=== PATIENT | female | born 1950 | race Two or more races ===

== ENCOUNTER 2023-12-08 07:20 | Inpatient (IN) | payer MEDICARE, OTHER ==
[2023-12-07 12:02] LABS: Basophils # (auto) 0.1 10 ^3/uL (0-0.2); Basophils % (auto) 0.9 % (0.0-2.0); Eosinophils # (auto) 0.1 10 ^3/uL (0-0.8); Eosinophils % (auto) 1.3 % (0.0-7.0); Hematocrit 40.3 % (36.0-46.0); Hemoglobin 13.4 g/dL (12.2-16.2); Lymphocytes # (auto) 2.7 10 ^3/uL (0.4-5.4); Lymphocytes % (auto) 40.8 % (10.0-50.0); Mean Corpuscular Hemoglobin 29.8 pg (28.0-32.0); Mean Corpuscular Hgb Conc. 33.3 g/dL (32.0-36.0); Mean Corpuscular Volume 89.4 fL (80.0-100.0); Monocytes # (auto) 0.5 10 ^3/uL (0-1.3); Monocytes % (auto) 7.6 % (0.0-12.0); Neutrophils # (auto) 3.2 10 ^3/uL (1.6-8.6); Neutrophils % (auto) 49.4 % (37.0-80.0); Red Blood Cells 4.51 10^6/uL (4.0-5.20); Red Cell Distribution Width 13.6 % (11.8-14.3); White Blood Cell 6.5 10^3/uL (4.4-10.8)
[2023-12-07 12:17] LABS: INR 1.07 (0.9-1.15); Partial Thromboplastin Time 26.3 SEC (24.5-34.5); Prothrombin Time 11.2 sec (9.3-11.8)
[2023-12-07 12:26] LABS: Urine Bacteria None Seen /hpf (None Seen)
[2023-12-07 12:38] LABS: Alanine Aminotransferase 20 U/L (7-40); Alkaline Phosphatase 45 U/L (46-116); Anion Gap 9 (5-15); BUN/Creatinine Ratio 11.8 (10.0-20.0); Blood Urea Nitrogen 9 mg/dL (9-23); Calcium 9.5 mg/dL (8.5-10.1); Carbon Dioxide 26 mmol/L (20-30); Chloride 106 mmol/L (98-107); Glucose 145 mg/dL (74-106); Potassium 4.3 mmol/L (3.5-5.1); Sodium 141 mmol/L (136-145)
[2023-12-07 12:39] LABS: Albumin 4.2 g/dL (3.2-4.8)
[2023-12-07 12:40] LABS: Aspartate Aminotransferase 22 U/L (13-40); Bilirubin, Total 0.6 mg/dL (0.2-1.0); Total Protein 6.5 g/dL (5.7-8.2)
[2023-12-07 13:15] LABS: Urine Blood Negative /uL (Negative); Urine Clarity Clear (Clear); Urine Color Yellow (Yellow); Urine Mucus FEW (None Seen); Urine Protein, UAD Negative (Negative); Urine Specific Gravity 1.015 (1.001-1.035); Urine Urobilinogen Normal (Negative); Urine WBC 1 /hpf (0 - 5)
[~2023-12-08] VITALS: Ht 157.5 cm; Wt 81.2 kg
[~2023-12-08 07:20] MED LIST: ATOR20TA PO; MET50T PO; METF-370 PO; SITA50TA PO
[2023-12-08] MEDS ORDERED: HYDROmorphone HCL 2 MG/ML VL/or syr IV PRN ×2 (08:00)
[2023-12-08] MEDS ORDERED: MORPHINE SULFATE INJ 2 MG/ml SYRG IV PRN ×2 (08:00→13:30)
[2023-12-08] MEDS ORDERED: MIDAZOLAM HCL 2MG/2ML 2ml VIAL (1mg/ml) ONE (08:46)
[2023-12-08] MEDS ORDERED: LIDOCAINE HCL 2% TOP JELLY 5ML TOP ONE (08:46)
[2023-12-08] MEDS ORDERED: NEOSTIGMINE 1 MG/ML INJ (10mg/10ML VIAL) ONE (08:46)
[2023-12-08] MEDS ORDERED: MEPERIDINE HCL (50 MG/ML) 1 ML VIAL ONE (08:46)
[2023-12-08] MEDS ORDERED: fentaNYL CITRATE 100 MCG/2 ML VL ONE (08:46)
[2023-12-08] MEDS ORDERED: SODIUM CHLORIDE LOCK 50 ML ONE (08:46)
[2023-12-08] MEDS ORDERED: GLYCOPYRROLATE 0.2 MG/ML 1ML VIAL ONE (08:46)
[2023-12-08] MEDS ORDERED: ROCURONIUM 10MG/ML 10ML VIAL IV ONE (08:46)
[2023-12-08] MEDS ORDERED: DexAMETHasone SOD PHOS 10MG/1ML VIAL INJ ONE (08:46)
[2023-12-08] MEDS ORDERED: LIDOCAINE 1% INJ PF 5ML AMP ONE (08:46)
[2023-12-08] MEDS ORDERED: PROPOFOL 10 MG/ML 20 ML IV ONE (08:46)
[2023-12-08] MEDS ORDERED: KETAMINE 50mg/ML 1ml syringe ONE (08:54)
[2023-12-08] MEDS ORDERED: NITROGLYCERIN 0.4 MG SL TAB SL PRN (13:30)
[2023-12-08] MEDS ORDERED: ACETAMINOPHEN 325 MG TAB PO PRN (13:30)
[2023-12-08] MEDS: LIDOCAINE W/ EPINEPHRINE 1% 20ML VIAL ONE (13:52)
[2023-12-08 14:02] VITALS: O2SAT 97
[2023-12-08] MEDS: ONDANSETRON HCL 4 MG/2 ML VIAL ONE (14:14)
[2023-12-08] MEDS: METOCLOPRAMIDE HCL 5MG/ml INJ 2ml VIAL IV ONE (14:27)
[2023-12-08] MEDS: FAMOTIDINE (10MG/ML) 2ML VL IV ONE (14:53)
[2023-12-08] MEDS: ceFAZolin 1GM/50ML 50 ML IV SCH (16:00)
[2023-12-08] MEDS ORDERED: hydrALAZINE HCL 20 MG/ML VL IV PRN (17:00)
[2023-12-08] MEDS ORDERED: DEXTROSE (50%) 50ML SYRG IV PRN (17:00)
[2023-12-08] MEDS: InsuLIN REG 1unit/0.01ml Soln (100units/ml) SC SCH (17:00)
[2023-12-08 17:30] VITALS: BP 117/69; PULSE 69; PULSE 79; RESP 18; TEMP 96.9; O2SAT 91
[2023-12-08 18:05] VITALS: BP 109/45; PULSE 68; RESP 18; O2SAT 98
[2023-12-08] MEDS: ACCU-CHEK COMFORT CURVE STRIP VI SCH (19:25)
[2023-12-08 20:00] VITALS: BP 116/62; PULSE 79; PULSE 90; RESP 18; TEMP 98.3; O2SAT 97
[2023-12-08] MEDS: DOCUSATE SOD 100 MG CAP PO SCH (21:48)
[2023-12-08] MEDS: METHOCARBAMOL 500 MG TAB PO SCH (21:48)
[2023-12-08] MEDS: D5W/SOD CHLO 0.9% 1,000 ML IV SCH (21:49)
[2023-12-08 22:00] VITALS: BP 116/62; PULSE 79; RESP 18; O2SAT 97
[2023-12-09] VITALS (8 sets, daily range): BP systolic 93–123; BP diastolic 38–52; PULSE 75–91; RESP 16–20; TEMP 97.5–98.9; O2SAT 95–99
[2023-12-09] MEDS: ONDANSETRON HCL 4 MG/2 ML VIAL IV PRN (06:19)
[2023-12-09] MEDS: MORPHINE SULFATE INJ 2 MG/ml SYRG IV PRN (06:20)
[2023-12-09 07:27] LABS: Basophils # (auto) 0 10 ^3/uL (0-0.2); Eosinophils # (auto) 0 10 ^3/uL (0-0.8); Hematocrit 31.8 % (36.0-46.0); Hemoglobin 10.6 g/dL (12.2-16.2); Lymphocytes # (auto) 0.6 10 ^3/uL (0.4-5.4); Lymphocytes % (auto) 5.3 % (10.0-50.0); Mean Corpuscular Hemoglobin 29.9 pg (28.0-32.0); Mean Corpuscular Hgb Conc. 33.4 g/dL (32.0-36.0); Mean Corpuscular Volume 89.8 fL (80.0-100.0); Monocytes # (auto) 0.5 10 ^3/uL (0-1.3); Monocytes % (auto) 4.5 % (0.0-12.0); Neutrophils # (auto) 10.8 10 ^3/uL (1.6-8.6); Neutrophils % (auto) 90.2 % (37.0-80.0); Red Blood Cells 3.54 10^6/uL (4.0-5.20); Red Cell Distribution Width 13.4 % (11.8-14.3)
[2023-12-09 07:46] LABS: Alanine Aminotransferase 16 U/L (7-40); Alkaline Phosphatase 35 U/L (46-116); Anion Gap 9 (5-15); BUN/Creatinine Ratio 13.3 (10.0-20.0); Blood Urea Nitrogen 10 mg/dL (9-23); Calcium 8.4 mg/dL (8.5-10.1); Carbon Dioxide 23 mmol/L (20-30); Chloride 104 mmol/L (98-107); Glucose 275 mg/dL (74-106)
[2023-12-09 07:47] LABS: Albumin 3.4 g/dL (3.2-4.8); Aspartate Aminotransferase 21 U/L (13-40); Bilirubin, Total 0.4 mg/dL (0.2-1.0); Total Protein 5.3 g/dL (5.7-8.2)
[2023-12-09 07:54] LABS: Sodium 136 mmol/L (136-145)
[2023-12-09] MEDS: HYDROcodone-ACET 10/325MG TAB PO PRN (11:23)
[2023-12-10] VITALS (8 sets, daily range): BP systolic 115–146; BP diastolic 39–88; PULSE 18–130; RESP 18–20; TEMP 97.9–101; O2SAT 90–95
[2023-12-10 05:46] LABS: Basophils # (auto) 0 10 ^3/uL (0-0.2); Basophils % (auto) 0.3 % (0.0-2.0); Eosinophils # (auto) 0 10 ^3/uL (0-0.8); Eosinophils % (auto) 0.2 % (0.0-7.0); Hemoglobin 10.3 g/dL (12.2-16.2); Lymphocytes # (auto) 1.2 10 ^3/uL (0.4-5.4); Lymphocytes % (auto) 9.2 % (10.0-50.0); Mean Corpuscular Hemoglobin 29.8 pg (28.0-32.0); Mean Corpuscular Hgb Conc. 33.1 g/dL (32.0-36.0); Monocytes # (auto) 0.7 10 ^3/uL (0-1.3); Monocytes % (auto) 5.4 % (0.0-12.0); Neutrophils # (auto) 10.8 10 ^3/uL (1.6-8.6); Neutrophils % (auto) 84.9 % (37.0-80.0); Nucleated Red Blood Cells % 0.1 %; Red Blood Cells 3.44 10^6/uL (4.0-5.20); Red Cell Distribution Width 13.6 % (11.8-14.3); White Blood Cell 12.7 10^3/uL (4.4-10.8)
[2023-12-10 06:03] LABS: Chloride 101 mmol/L (98-107); Potassium 4.3 mmol/L (3.5-5.1); Sodium 133 mmol/L (136-145)
[2023-12-10 06:04] LABS: Anion Gap 7 (5-15); Carbon Dioxide 25 mmol/L (20-30)
[2023-12-10 06:05] LABS: Calcium 8.6 mg/dL (8.5-10.1)
[2023-12-10 06:09] LABS: BUN/Creatinine Ratio 9.4 (10.0-20.0); Blood Urea Nitrogen 6 mg/dL (9-23); Glucose 177 mg/dL (74-106)
[2023-12-10] MEDS: PANTOPRAZOLE 40 MG/10 ML VIAL INJ IV ONE (11:44)
[2023-12-10] MEDS: SODIUM CHLORIDE 0.9% 1,000 ML IV SCH (11:50)
[2023-12-11] VITALS (8 sets, daily range): BP systolic 121–158; BP diastolic 60–77; PULSE 71–100; RESP 16–22; TEMP 98–98.5; O2SAT 90–97
[2023-12-11 07:20] LABS: Anion Gap 6 (5-15); Basophils # (auto) 0 10 ^3/uL (0-0.2); Basophils % (auto) 0.5 % (0.0-2.0); Carbon Dioxide 27 mmol/L (20-30); Chloride 106 mmol/L (98-107); Eosinophils # (auto) 0.1 10 ^3/uL (0-0.8); Eosinophils % (auto) 0.7 % (0.0-7.0); Hematocrit 32.5 % (36.0-46.0); Hemoglobin 10.8 g/dL (12.2-16.2); Lymphocytes # (auto) 1.4 10 ^3/uL (0.4-5.4); Lymphocytes % (auto) 15.6 % (10.0-50.0); Mean Corpuscular Hemoglobin 29.8 pg (28.0-32.0); Mean Corpuscular Hgb Conc. 33.4 g/dL (32.0-36.0); Mean Corpuscular Volume 89.4 fL (80.0-100.0); Monocytes # (auto) 0.8 10 ^3/uL (0-1.3); Monocytes % (auto) 8.7 % (0.0-12.0); Neutrophils # (auto) 6.8 10 ^3/uL (1.6-8.6); Neutrophils % (auto) 74.5 % (37.0-80.0); Nucleated Red Blood Cells % 0.2 %; Potassium 3.7 mmol/L (3.5-5.1); Red Blood Cells 3.64 10^6/uL (4.0-5.20); Red Cell Distribution Width 13.7 % (11.8-14.3); Sodium 139 mmol/L (136-145); White Blood Cell 9.1 10^3/uL (4.4-10.8)
[2023-12-11 07:21] LABS: Calcium 8.7 mg/dL (8.5-10.1)
[2023-12-11 07:26] LABS: Glucose 159 mg/dL (74-106)
[2023-12-11 07:29] LABS: BUN/Creatinine Ratio 8.6 (10.0-20.0); Blood Urea Nitrogen < 5 mg/dL (9-23)
[2023-12-11] MEDS: ACCU-CHEK COMFORT CURVE STRIP VI ONE (07:35)
[2023-12-11] MEDS: TRANEXAMIC ACID 20 ML ONE (07:35)
[2023-12-11] MEDS: levoFLOXacin 750MG 150 ML IV ONE (07:36)
[2023-12-11] MEDS: LIDOCAINE 2% JELLY 11ml (GLYDO) ONE (07:36)
[2023-12-11] MEDS: ceFAZolin 2 GM/D5W50ml 50 ML IV ONE (07:37)
[2023-12-11] MEDS: KETOROLAC TROMETH 30 MG/ML 1ML VIAL IV ONE (07:37)
[2023-12-11] MEDS: FAMOTIDINE (10MG/ML) 2ML VL IV ONE (07:38)
[2023-12-11] MEDS: PANTOPRAZOLE 40 MG/10 ML VIAL INJ IV SCH (09:59)
[2023-12-11] MEDS: CYCLOBENZAPRINE HCL 10 MG TAB PO SCH ×2 (15:25→22:22)
[2023-12-12] VITALS (7 sets, daily range): BP systolic 116–150; BP diastolic 51–81; PULSE 71–93; RESP 16–20; TEMP 98.1–98.2; O2SAT 93–100
[2023-12-12] MEDS: SODIUM CHLOR 0.9% PF (SALINE LOCK) 10ML VIAL/SYR IV SCH (10:47)
[2023-12-12] MEDS: POLYETHYLENE GLYCOL 17 GM PWDR PO SCH (10:47)
[2023-12-12] MEDS: CYCLOBENZAPRINE HCL 10 MG TAB PO SCH (22:09)
[2023-12-13] VITALS (8 sets, daily range): BP systolic 131–152; BP diastolic 46–80; PULSE 82–106; RESP 18–20; TEMP 97.8–98.7; O2SAT 91–97
[2023-12-14] VITALS (7 sets, daily range): BP systolic 102–125; BP diastolic 54–70; PULSE 87–101; RESP 12–18; TEMP 98–98.8; O2SAT 92–96
[2023-12-14] MEDS ORDERED: CYCL-837 PO (11:35)
[2023-12-14] MEDS ORDERED: DOCU-265 PO (11:35)
[2023-12-14] MEDS ORDERED: HYDR-4798 PO (11:35)
[2023-12-15] MEDS ORDERED: PANTOPRAZOLE 40 MG TAB PO SCH (10:00)
== END 2023-12-14 18:57 | disposition home health service (06) | DRG 460 ==
LOC: SUR 07:20 → TELE 13:30 → TELE-WESTW 16:30
PROVIDERS: ADMIT Internal Medicine; ATTEND Internal Medicine
PROC: 01NB0ZZ Release Lumbar Nerve, Open Approach (ICD-10-PCS; 2023-12-08)
PROC: 0SG10AJ Fusion of 2 or more Lumbar Vertebral Joints with Interbody Fusion Device, Posterior Approach, Anterior Column, Open Approach (ICD-10-PCS; principal; 2023-12-08 11:05)
DX: M48.062 Spinal stenosis, lumbar region with neurogenic claudication (principal); E66.9 Obesity, unspecified; E78.5 Hyperlipidemia, unspecified; E11.9 Type 2 diabetes mellitus without complications; I10 Essential (primary) hypertension; Z68.32 Body mass index [BMI] 32.0-32.9, adult; G89.18 Other acute postprocedural pain; Z92.29 Personal history of other drug therapy
CPT/HCPCS: 36415; 72100; 76000; 80048; 80053; 81001; 82962; 83036; 85025; 85610; 85730; 86850; 86900; 86901; 97110; 97116; 97163; 97530; C9113; G0378; J1100; J1815; J2250; J2405; J2704; J3490